=== PATIENT | female | born 1950 | race Caucasian/White ===

== ENCOUNTER → 2017-02-28 | Day surgery (SDC) | payer MEDICARE, BC ==
[~2017-02-28] MED LIST: ACETAMINOPHEN 1000 MG/100 ML 100 ML IV ONE; DEXAMETHASONE SOD PHOS 4 MG/ML VIAL IV ONE; LACTATED RINGER'S 1000 ML INJ 1,000 ML ONE; LIDOCAINE 2%/EPINEPHrine PF 1:200,000 20ML SDV ONE; LIDOCAINE HCL 1% PF 5 ML AMPULE OTHER ONE; MIDAZOLAM HCL 2 MG/2 ML VIAL ONE; ONDANSETRON HCL 4 MG/2 ML VIAL IV PUSH ONE; PROPOFOL 200 MG/20 ML AMP IV ONE; SODIUM CHLOR 0.9% 250 ML BAG IV ONE; SODIUM CHLORIDE 0.9% INJ 10 ML ONE; VANCOMYCIN HCL 1000 MG VIAL ONE; ceFAZolin INJ 1,000 MG VIAL ONE
--- NOTE | 2017-02-28 21:03 | MP ---
cc: MIRELA LAIRD M.D.,DAVID FERRERA M.D. DATE OF SURGERY 02/28/2017 PROCEDURE Right breast needle localized breast biopsy. PREOPERATIVE DIAGNOSIS Atypical ductal hyperplasia, right breast. POSTOPERATIVE DIAGNOSIS Atypical ductal hyperplasia, right breast. ANESTHESIA LMA. SURGEON MD Riky ESTIMATED BLOOD LOSS Less than 10 ml. FLUIDS 650 ml crystalloid. COMPLICATIONS None. DRAINS None. SPECIMEN Needle-localized right breast tissue to pathology. PROCEDURE IN DETAIL The patient was seen in the department of radiology where she underwent needle localization procedure on the right breast. The right breast was marked by the undersigned before going back to the operating room. This was confirmed by the patient. The patient was taken to the operating room and placed on the operating table in the supine position. After an adequate level of anesthesia was achieved the right breast was prepped and draped in the field. Time-out was taken confirming the correct patient, site and procedure to be performed. Skin and subcutaneous tissue was infiltrated with local anesthetic and a circumareolar incision made from the 2 o'clock to the 5 o'clock position of the breast. Dissection was carried out medially to the wire which was cut at the skin and brought into the wound. A sphere of tissue was removed including the needle and this was submitted for specimen mammogram after orienting with silk sutures. Specimen mammogram confirmed the lesion in question to be present within the specimen with the clip in place. A few punctate calcifications were noted as well. While awaiting radiologic confirmation, hemostasis was achieved with electrocautery. The wound was closed in two layers with interrupted 3-0 Vicryl suture and 5-0 PDS in a running subcuticular fashion. The wound was dressed with Steri-Strips. The patient was taken back to the recovery room in stable condition. Sponge, needle and instrument counts were reported to be correct. MD JULIANNE Andujar/CAROLANN /1:54 PM /8:50 PM LOU
== END | disposition home or self-care (01) ==
LOC: ESDC 09:37
PROVIDERS: ATTEND Surgery Trauma Surgery
DX: N60.91 Unspecified benign mammary dysplasia of right breast (principal)
CPT/HCPCS: 00400; 19125; 88307; J0131; J0690; J1100; J2250; J2405; J3010; J3370; J7050; J7120

== ENCOUNTER 2017-08-05 08:10 | Emergency (ER) | payer MEDICARE, BC ==
[~2017-08-05] VITALS: Ht 175.3 cm; Wt 80.0 kg
[2017-08-05 08:21] VITALS: BP 171/81; PULSE 88; RESP 18; TEMP 98; O2SAT 97
[2017-08-05] MEDS ORDERED: CETI10 PO (08:33)
[2017-08-05] MEDS ORDERED: PROM6.256 PO (08:33)
[2017-08-05] MEDS ORDERED: ALPR0.25 PO (08:33)
[2017-08-05] MEDS ORDERED: VITA2000 PO (08:33)
[2017-08-05] MEDS ORDERED: DEXT1LIQ15 PO (08:33)
[2017-08-05] MEDS ORDERED: LEVO112T29 PO (08:33)
[2017-08-05] MEDS ORDERED: MULT-65 PO (08:33)
[2017-08-05] MEDS ORDERED: TRAZ1TAB14 PO (08:33)
[2017-08-05] MEDS ORDERED: ZOLP5TAB3 PO (08:33)
[2017-08-05] MEDS ORDERED: PRAV10TA PO (08:33)
[2017-08-05] MEDS ORDERED: FLUT50SP EACH NARE (08:33)
[2017-08-05] MEDS ORDERED: ASPI81CH6 CHEW (08:33)
[2017-08-05] MEDS ORDERED: ZITHTAB2 PO (08:33)
--- NOTE | 2017-08-05 08:33 | PD ---
HPI Chief Complaint: Neuro Symptoms/ Deficits Time Seen by Provider: 08:24 Travel History International Travel<30 days: No Contact w/Intl Traveler<30days: No Traveled to known affect area: No History of Present Illness HPI Patient presents with concerns of facial asymmetry. States that yesterday she felt as if her right eye was a bit stiff with mild drooping of the right side of her mouth. States she awoke this morning and symptoms seem to be slightly worse. She does report recent bilateral internal and external ear infections. Compliant with medications. Denies any extremity weakness. Denies any gait abnormalities. Denies any visual changes. Denies any slurred speech. Denies any confusion. Past medical history of hypothyroidism, hyperlipidemia and allergies. Nondiabetic. Nonsmoker. PFSH Past Medical History ?: Not Social History Tobacco Use: No Allergies-Medications (Allergen,Severity, Reaction): Coded Allergies: No Known Allergies (Verified Allergy, Unknown, 08/05/17) Reported Meds & Prescriptions Reported Meds & Active Scripts Active Reported Promethazine-Codeine Liq 6.25-10 Mg/5 Ml Syrp 5 Ml PO Q6H PRN Delsym Cough Chest Congestion (Dextromethorphan-Guaifenesin Liq) 5-100 Mg/5 Ml Liq 20 Ml PO Q4H PRN Cetirizine (Cetirizine HCl) 10 Mg Tab 10 Mg PO DAILY Zithromax Tri-Antonio (Azithromycin) 500 Mg Dspk 500 Mg PO DAILY Alprazolam 0.25 Mg Tab 0.25 Mg PO Q6H PRN Zolpidem (Zolpidem Tartrate) 5 Mg Tab 5 Mg PO HS PRN Vitamin D3 (Cholecalciferol) 2,000 Unit Cap 2,000 Units PO DAILY Aspirin Low Dose (Aspirin) 81 Mg Chew 81 Mg CHEW DAILY Multi-Vitamin Daily (Multiple Vitamin) 1 Tab Tab 1 Tab PO DAILY Fluticasone Nasal Elmo 50 Mcg/Act Naspr 50 Mcg EACH NARE BID 50 mcg/spray Trazodone (Trazodone HCl) 150 Mg Tablet 75 Mg PO HS Pravastatin 10 Mg Tab 10 Mg PO HS Levoxyl (Levothyroxine Sodium) 112 Mcg Tab 112 Mcg PO DAILY Review of Systems General / Constitutional: No: Fever Eyes: No: Visual changes HENT: No: Headaches Cardiovascular: No: Chest Pain or Discomfort Respiratory: No: Shortness of Breath Gastrointestinal: No: Abdominal Pain Genitourinary: No: Dysuria Musculoskeletal: No: Pain Skin: No Rash Neurologic: Positive: Other (facial asymmetry), No: Weakness Psychiatric: No: Depression Endocrine: No: Polydipsia Hematologic/Lymphatic: No: Easy Bruising Physical Exam Narrative GENERAL: Alert and oriented SKIN: Focused skin assessment warm/dry. HEAD: Atraumatic. Normocephalic. EYES: Pupils equal and round. No scleral icterus. No injection or drainage. Able to close lid completely Mild right oral droop ENT: No nasal bleeding or discharge. Mucous membranes pink and moist. NECK: Trachea midline. No JVD. CARDIOVASCULAR: Regular rate and rhythm. No murmur appreciated. RESPIRATORY: No accessory muscle use. Clear to auscultation. Breath sounds equal bilaterally. GASTROINTESTINAL: Abdomen soft, non-tender, nondistended. Hepatic and splenic margins not palpable. MUSCULOSKELETAL: No obvious deformities. No clubbing. No cyanosis. No edema. NEUROLOGICAL: Awake and alert. No obvious cranial nerve deficits. Motor grossly within normal limits. Normal speech. No extremity drift, good coordination PSYCHIATRIC: Appropriate mood and affect; insight and judgment normal. Data Data Last Documented VS Vital Signs Date Time Temp Pulse Resp B/P (MAP) Pulse Ox O2 Delivery O2 Flow Rate FiO2 08/05/17 08:57 79 18 134/67 (89) 97 08/05/17 08:[address] Brain W/O Iv Contrast(Rout) (08/05/17 ) [facility] Medical Decision Making Medical Screen Exam Complete: Yes Emergency Medical Condition: Yes Differential Diagnosis Hansen's palsy, CVA, TIA Narrative Course Assessment and plan discussed with patient at bedside. CT reveals no intracranial abnormality seen, however there is some sinus disease. Diagnosis Primary Impression: Hansen palsy Patient Instructions: General Instructions Additional Instructions: Steroid as prescribed, encouraged to keep eye lubricated. Encouraged to follow- up with PCP. Return to emergency room with the onset of new symptoms. Med/Other Pt SpecificInfo: Prescription(s) given Scripts Prednisone (48) 10 mg tab Dose Pack (Prednisone (48) 10 mg tab Dose Pack) 10 Mg Dspk 10 MG PO DIRECTED for Inflammation, #1 DSPK 0 Refills Prov: Dave Marcial MD 08/05/17 Disposition: 01 DISCHARGE HOME Condition: Good Dave Marcial MD Aug 05, 2017 08:32
--- NOTE | 2017-08-05 08:51 | RADRPT ---
EXAM DATE/TIME: 08/05/2017 08:36 [place] COMPARISON: No previous studies available for comparison. INDICATIONS : Right facial numbness since yesterday. RADIATION DOSE: 59.59 CTDIvol (mGy) MEDICAL HISTORY : Hypercholesterolemia. SURGICAL HISTORY : None. ENCOUNTER: Initial ACUITY: 2 days PAIN SCALE: 0/10 LOCATION: Right cranial TECHNIQUE: Multiple contiguous axial images were obtained of the head. Using automated exposure control and adj ustment of the mA and/or kV according to patient size, radiation dose was kept as low as reasonably a chievable to obtain optimal diagnostic quality images. DICOM format image data is available electro nically for review and comparison. FINDINGS: CEREBRUM: The ventricles are normal for age. No evidence of midline shift, mass lesion, hemorrhage or acute in farction. No extra-axial fluid collections are seen. POSTERIOR FOSSA: The cerebellum and brainstem are intact. The 4th ventricle is midline. The cerebellopontine angle i s unremarkable. EXTRACRANIAL: The visualized portion of the orbits is intact. There is ethmoid and maxillary sinus disease. SKULL: The calvaria is intact. No evidence of skull fracture. CONCLUSION: 1. No intracranial abnormality seen. 2. Sinus disease. Eldon Petersen MD on August 05, 2017 at 8:49 Board Certified Radiologist. This report was verified electronically.
[2017-08-05 08:57] VITALS: BP 134/67; PULSE 79; RESP 18; O2SAT 97
[2017-08-05] MEDS ORDERED: PRED10PA2 PO (09:07)
== END 2017-08-05 09:23 | disposition home or self-care (01) ==
LOC: PHED 08:10
DX: G51.0 Bell's palsy (principal); E03.9 Hypothyroidism, unspecified; E78.5 Hyperlipidemia, unspecified; Z79.82 Long term (current) use of aspirin; Z79.899 Other long term (current) drug therapy
CPT/HCPCS: 70450; 99283